=== PATIENT | female | born 1965 | race Caucasian/White ===

== ENCOUNTER → 2018-03-23 | Outpatient (CLI) | payer BC ==
[~2018-03-23] MED LIST: ALBU8.5H8 IH; ASPI-630 PO; FEXO180T81 PO; GADOBUTROL 10 MMOL/10 ML VIAL IV ONE; IBUP-1027 PO
--- NOTE | 2018-03-23 13:27 | KCIC ---
MRI pelvis with and without contrast dated 03/23/2018. No comparison available. Clinical data indication: Left lower quadrant pain. Fibroid uterus. TECHNIQUE: Routine multiplanar multisequence MR imaging performed with and without the administration of 10 cc Gadavist. FINDINGS: Uterus is enlarged, measuring 15.5 x 7.6 x 9.7 cm. There are multiple heterogeneous mass lesions throughout the myometrium, consistent with fibroids. Lesion at the right anterior aspect of the lower uterine segment is predominantly hypointense to isointense on T1 and T2-weighted imaging and measures up to 4.7 cm. More heterogeneous lesion at the left aspect of the lower uterine body measures up to 5.6 cm in size and contains some internal cystic components. Heterogeneous lesion at the posterior uterine body near the fundus is partially exophytic and measures 4.6 cm maximum dimension. Smaller nodules located at the fundus and anterior uterine body measure up to 2.8 cm maximum dimension. There are several additional cystic foci throughout. The endometrium is thickened and heterogeneous with prominent enhancement measuring up to 2.7 cm in width. There is a small nodular focus within the endometrium at the lower uterine segment which may be a submucosal fibroid or a pedunculated polyp, measuring about 7 mm maximum dimension. Multiple nabothian cysts at the endocervix. Left ovary measures 5.1 x 5.2 x 6.6 cm. There are multiple cysts at the left ovary, some of which are complex. There is a central solid component measuring up to 2.2 cm. A simple cyst at the upper margin of the left ovary measures up to 4.3 cm in size. The right ovary is not clearly identified. There is a cluster small cyst along the anterior right margin of the uterus that could represent a cyst filled ovary, measuring approximately 4.2 x 1.6 x 2.0 cm. No definite solid component or abnormal enhancement. There is no significant free fluid. No pelvic adenopathy. Urinary bladder is collapsed and not well evaluated. No acute bony abnormality. IMPRESSION: 1. Enlarged myomatous uterus as described above. 2. Thickened enhancing endometrial complex of uncertain etiology. This could be related to menstrual cycle or endometrial hyperplasia. If the patient is postmenopausal, malignancy cannot be excluded. 3. There is an additional nonenhancing nodular focus within the canal at the lower uterine segment which could represent a small submucosal fibroid or polyp. 4. Complex cystic mass on the left with possible 2.2 cm central solid nodular component. Although this could represent hemorrhagic cyst or other complex benign cyst, underlying ovarian malignancy cannot be excluded. Follow-up imaging is recommended to ensure stability. Electronically signed by: Dorian Tyler MD (03/23/2018 1:24 PM) [facility]-[id number]
== END | disposition home or self-care (01) ==
LOC: KCIC MRI 11:36
PROVIDERS: ATTEND Obstetrics & Gynecology
DX: N85.2 Hypertrophy of uterus (principal)
CPT/HCPCS: 72197; A9585

== ENCOUNTER → 2018-05-11 | Outpatient (CLI) | payer BC ==
[~2018-05-11] MED LIST changes: -GADOBUTROL 10 MMOL/10 ML VIAL IV ONE; +PARO20TA99 PO
[2018-05-11 15:07] LABS: BASO # 0.1 x10^3/uL (0.0-0.2); BASO % 1 % (0-3); EOS # 0.3 x10^3/uL (0.0-0.7); EOS % 3 % (0-3); HEMATOCRIT 37.9 % (36.0-47.0); HEMOGLOBIN 12.9 g/dL (12.0-15.5); LYMPH # 1.7 x10^3/uL (1.0-4.8); LYMPH % 19 % (24-48); MEAN CORPUSCULAR HEMOGLOBIN 29 pg (25-35); MEAN CORPUSCULAR HGB CONC 34 g/dL (31-37); MEAN CORPUSCULAR VOLUME 85 fL (79-100); MONO # 0.6 x10^3/uL (0.0-1.1); MONO % 6 % (0-9); NEUT # 6.4 x10^3uL (1.8-7.7); NEUT % 71 % (31-73); PLATELET COUNT 274 x10^3/uL (140-400); RED BLOOD COUNT 4.49 x10^6/uL (3.50-5.40); RED CELL DISTRIBUTION WIDTH 15.5 % (11.5-14.5)
[2018-05-11 15:09] LABS: BILIRUBIN,URINE NEGATIVE (NEG); CLARITY,URINE CLEAR; COLOR,URINE YELLOW; NITRITE,URINE NEGATIVE (NEG); PH,URINE 5.5; PROTEIN,URINE NEGATIVE (NEG-TRACE); UROBILINOGEN,URINE 0.2 mg/dL (0.2 mg/dL)
[2018-05-11 15:14] LABS: SQUAMOUS EPITHELIAL CELL,UR FEW /LPF
[2018-05-11 15:17] LABS: RBC,URINE >40 /HPF (0-2)
[2018-05-11 15:18] LABS: BACTERIA,URINE 0 /HPF (0-FEW); WBC,URINE OCC /HPF (0-4)
--- NOTE | 2018-05-11 15:19 | EKG ---
[facility] [address] [place] [address] Test Date: 2018-05-11 Test Time: 14:26:08 Pat Name: VESNA CALLE Department: Room: Gender: F Drill Sergeant: RASHI : 1965 Requested By: STEVE JACOB Order Number: [id number] Reading MD: Sohan Patel MD Measurements Intervals [place] Rate: 75 P: 53 MS: 166 QRS: 15 QRSD: 92 T: 70 QT: 384 QTc: 431 Interpretive Statements SINUS RHYTHM Electronically Signed On 05-13-2018 13:43:31 CDT by Sohan Patel MD
[2018-05-11 15:23] LABS: ALBUMIN 3.3 g/dL (3.4-5.0); ALBUMIN/GLOBULIN RATIO 0.7 (1.0-1.7); CALCIUM 8.5 mg/dL (8.5-10.1); CREATININE 0.7 mg/dL (0.6-1.0); GFR 87.9; POTASSIUM 3.5 mmol/L (3.5-5.1); TOTAL BILIRUBIN 0.5 mg/dL (0.2-1.0)
--- NOTE | 2018-05-11 15:49 | RAD ---
EXAM: Chest, 2 views. HISTORY: Preoperative evaluation. Pain. COMPARISON: None. FINDINGS: 2 views of the chest are obtained. There is no infiltrate, pleural effusion or pneumothorax. The heart is normal in size. IMPRESSION: No acute pulmonary finding. Electronically signed by: Janet Leslie MD (05/11/2018 3:46 PM) [facility]-H2
== END | disposition home or self-care (01) ==
LOC: SURGPAT 14:22
PROVIDERS: ATTEND Obstetrics & Gynecology
DX: Z01.818 Encounter for other preprocedural examination (principal); N85.2 Hypertrophy of uterus; E66.01 Morbid (severe) obesity due to excess calories
CPT/HCPCS: 36415; 71046; 80053; 81001; 85025; 93005

== ENCOUNTER 2018-05-24 06:00 | Inpatient (IN) | payer BC ==
[~2018-05-24] VITALS: Ht 160 cm; Wt 106.6 kg
[~2018-05-24 06:00] MED LIST changes: +BUPIVAC MPF-EPI 0.5%-1:200000 30 ML VIAL. ONE; +VASOPRESSIN 20 UNIT/ML VIAL. ONE
[2018-05-24] MEDS: IV RINGERS,LACTATED 1000ML 1,000 ML IV SCH ×3 (06:42→12:05)
[2018-05-24 06:51] LABS: U PREG PATIENT NEGATIVE (NEG)
[2018-05-24] MEDS ORDERED: HYDROmorphone 2 MG/ML VIAL IV PRN (07:00)
[2018-05-24] MEDS ORDERED: ONDANSETRON PF 4 MG/2 ML VIAL. IV PRN ×2 (07:00→10:45)
[2018-05-24] MEDS ORDERED: LIDOCAINE 1% PF 2 ML VIAL. ID PRN (07:00)
[2018-05-24] MEDS ORDERED: fentaNYL PF VIAL 100 MCG/2 ML VIAL IV PRN (07:00)
[2018-05-24] MEDS ORDERED: PROCHLORPERAZINE 10 MG/2 ML VIAL. IV PRN (07:00)
[2018-05-24] MEDS ORDERED: MORPHINE SULFATE 2 MG/ML VIAL. IV PRN ×2 (07:00→10:45)
[2018-05-24] MEDS ORDERED: LIDOCAINE 2% PF Vial for OR 5 ML VIAL. ONE (07:20)
[2018-05-24] MEDS ORDERED: MIDAZOLAM HCL/PF 2 MG/2 ML VIAL. ONE (07:20)
[2018-05-24] MEDS ORDERED: DEXAMETHASONE SOD PHOS 20 MG/5 ML VIAL. ONE (07:20)
[2018-05-24] MEDS ORDERED: PROPOFOL 50 ML IV ONE ×2 (07:20→08:31)
[2018-05-24] MEDS ORDERED: PROPOFOL 20 ML IV ONE ×2 (07:20→08:31)
[2018-05-24] MEDS ORDERED: fentaNYL PF VIAL 100 MCG/2 ML VIAL ONE (07:20)
[2018-05-24] MEDS ORDERED: ROCURONIUM 50 MG/5 ML VIAL. ONE ×2 (07:20→08:43)
[2018-05-24] MEDS ORDERED: ONDANSETRON PF 4 MG/2 ML VIAL. ONE ×2 (07:20→08:42)
[2018-05-24] MEDS ORDERED: REMIFENTANIL 2 MG VIAL. IV ONE (07:25)
[2018-05-24] MEDS ORDERED: PROPOFOL 200 ML IV ONE (07:31)
[2018-05-24] MEDS ORDERED: GLYCOPYRROLATE 1 MG/5 ML VIAL. ONE (07:55)
[2018-05-24] MEDS ORDERED: KETOROLAC 30 MG/ML INJ FOR OR. INJ ONE (08:42)
[2018-05-24] MEDS ORDERED: SCOPOLAMINE 1.5MG PATCH. TD SCH (09:00)
[2018-05-24] MEDS ORDERED: ALBUMIN HUMAN 5% 500 ML IV ONE (09:06)
[2018-05-24] MEDS ORDERED: NEOSTIGMINE METHYLSULFATE 5 MG/5 ML SYRINGE. ONE (09:19)
[2018-05-24] MEDS ORDERED: ZOLPIDEM 5 MG TABLET. PO PRN (10:45)
[2018-05-24] MEDS ORDERED: LACTULOSE 20 GM/30 ML SOLUTION. PO PRN (10:45)
[2018-05-24] MEDS ORDERED: CALCIUM CARBONATE 500 MG TAB.CHEW PO PRN (10:45)
[2018-05-24] MEDS ORDERED: 0.9 % SODIUM CHLORIDE 10 ML DISP.SYRIN. IV PRN (10:45)
[2018-05-24] MEDS ORDERED: NALOXONE 0.4 MG/ML VIAL. IV PRN (10:45)
[2018-05-24] MEDS ORDERED: MAG HYDROX/ALUMINUM HYD/SIMETH 30 ML ORAL.SUSP PO PRN (10:45)
[2018-05-24] MEDS ORDERED: SIMETHICONE 80 MG TAB.CHEW PO PRN (10:45)
[2018-05-24] MEDS ORDERED: diphenhydrAMINE 50 MG/ML VIAL IV PRN (10:45)
[2018-05-24] MEDS ORDERED: diphenhydrAMINE HCL 25 MG CAPSULE PO PRN (10:45)
[2018-05-24] MEDS ORDERED: MAGNESIUM HYDROXIDE 2,400 MG/30 ML ORAL.SUSP. PO PRN (10:45)
--- NOTE | 2018-05-24 11:00 | PDOC ---
BRIEF OPERATIVE NOTE Date: May 24, 2018 Pre-Op Diagnosis enlarged fibroid uterus, left ovarian mass, elevated Ca-125 Post-Op Diagnosis same Procedure Performed CRISTOFER/LSO (prior RSO) with pelvic washings for cytology Surgeon Dr. Roxy Thomas We[employer]her And Mixer Debra Adorno certified physician's assistant Anesthesiologist Dr. Dupont Anesthesia Type: General Blood Loss 1100cc IV Fluid 1300cc LR and 500cc albumin Urine Output 200cc clear whole case until last 15min and got 30cc blood tinged urine at end via peraza Specimens Obtained cervix, uterus, fibroids, Left tube and ovary Findings enlarged fibroid uterus, no significant pelvic adhesive disease, left ovarian cystic mass (fresh pathology came back benign per Dr. Mathew) Complications none Operative Note [id number] ROXY THOMAS MD May 24, 2018 11:00
[2018-05-24] MEDS: fentaNYL PF VIAL 100 MCG/2 ML VIAL IV PRN ×2 (11:21→12:06)
[2018-05-24 11:39] LABS: HEMATOCRIT 25.6 % (36.0-47.0); HEMOGLOBIN 8.8 g/dL (12.0-15.5); RED BLOOD COUNT 3.02 x10^6/uL (3.50-5.40); RED CELL DISTRIBUTION WIDTH 15.2 % (11.5-14.5); WHITE BLOOD COUNT 15.9 x10^3/uL (4.0-11.0)
--- NOTE | 2018-05-24 12:28 | OP ---
DATE OF SURGERY: 05/24/2018 PREOPERATIVE DIAGNOSES: Enlarged fibroid uterus, left ovarian mass with elevated CA-125. PROCEDURE: Total abdominal hysterectomy, left salpingo-oophorectomy and pelvic washings for cytology with a prior RSO. SURGEON: Steve Jacob MD. SALES REPRESENTATIVE [employer]IR[employer]PAREL: first lico Kwon. ANESTHESIOLOGIST: Wei Dupont MD. ANESTHESIA: General endotracheal. ESTIMATED BLOOD LOSS: 1100 mL. URINE OUTPUT: 200 mL, clear via the whole case until the last 15-20 minutes where she got 30 mL of blood-tinged urine via the Alfredo. INTRAVENOUS FLUIDS: 1300 mL of LR and then 500 mL of albumin. SPECIMEN REMOVED: Cervix, uterus fibroid, tumors left tube and ovary. FINDINGS: Enlarged fibroid uterus. No significant pelvic adhesive disease, left ovarian cystic mass that was sent off for fresh pathology, but Dr. Hinton came back and said appeared to be a benign process. COMPLICATIONS: None. DESCRIPTION OF PROCEDURE: This patient was taken to the operating room where general anesthesia was placed. The patient was placed in a dorsal supine position. A Alfredo catheter had been inserted under sterile technique. The patient's abdomen was prepped and draped in the normal sterile fashion. After a timeout was performed, she had been given her IV antibiotics and the time everyone approved the timeout, a transverse Pfannenstiel skin incision was made with the scalpel. Bovie cautery was used in the subcuticular layer to maintain hemostasis. The fascia was scored in the midline and extended sharply and bluntly bilaterally with the Bovie cautery. Steve clamps x 2 were placed on superior fascial edge. The fascia was dissected from the rectus muscles beneath sharply and bluntly. This was done inferiorly as well. The rectus muscles were digitally in the midline and the peritoneum was digitally and bluntly entered and stretched. The enlarged uterus and cystic left ovary could easily be felt. She was placed in a slight Trendelenburg, 3 moist laps were used to pack away the bowel and an O'Samuel-O'Freed retractor was placed in the abdomen with a large shallow upper blade and a bladder blade below. Pean's x 2 were placed on the cornua of the uterus to elevate it. It was very difficult as this was a broad uterus and barely came through the thing. The right side had previously been taken, but I did get the round ligament on the right side. There was no tube and ovary on the right, but the #0 Vicryl was used to place 2 stitches in the right round ligament. The Bovie cautery was used to cauterize between these and go down towards the bladder flap anteriorly and then, this was done exactly the same on the left getting the round ligament with 0 Vicryl x 2, but using the Bovie cautery to go through this and go down towards the bladder flap anteriorly. At this point, there was a large fibroid anteriorly that was scored with the cautery. A towel clip was placed over it and it was taken off, so I could see anteriorly and further take down that bladder flap anteriorly. I felt low and felt the ureter coursing low on the left side. Again, the right side, I did not even do anything on the right side as it was previously taken. So I did not even feel for the ureter on this side or do anything on the right side as it was completely gone, but it felt to be low and the cystic mass with high right next to the uterus, so a window through this area after the round ligament was obtained. My finger popped through. Curved Frantz clamps x 2 were placed behind the cystic mass, the curved Heaneys x 2 and it was cut off. It completely came off and it was passed off for fresh pathology. An 0 Vicryl was used to tie these. The first one was just at the tip and around and then the second one was like a Urich tree before and after going through the middle wrapping it around and making sure the blood supply was adequately got. Once this was done, the remainder of the utero-ovarian pedicle was doubly clamped freeing everything up with curved Heaneys, cut and this freed up the left side and then, curved Heaneys were placed on the uterine vessels on this side x 2. A straight Allis was placed for backbleeding on the other side of it and it was cut with Guy scissors. An 0 Vicryl x 2 were placed on the uterine vascular pedicles. This was done exactly the same on the right side, double clamping with curved Frantz's, cutting with Guy scissors, putting a straight Allis on for backbleeding, cutting and then suture ligating x 2 with 0 Vicryl. Then staying inside that pedicle, straight Heaneys were used on both sides going down through the cardinal and broad ligaments. There were more fibroids that were taken out and at one point, now that we were down to the cervix and I could see cervix, I did take the cautery and amputate the uterus and place our long Steve's on the cervical stub. Once this was done, I was able to take a sponge stick and make sure the bladder was down anteriorly and it was and even at this point, the urine was clear, everything looked good, the bladder was down. So 2 more bites with the straights and then a curved got us in vaginally and the Mk's were used to amputate the remaining cervix. The long Steve's were placed on the anterior and posterior vaginal cuff and a series of interrupted 0 Vicryls were used to close the cuff. I started at the corners on both coming in and taking it through the pedicles where the uterosacrals were on both sides tagging the corners and then placing I believe 4 interrupted 0 Vicryl sutures on the cuff as well. Once this was done, copious irrigation revealed hemostasis. The round and left pedicles were dry. Nathan was placed over the vaginal cuff and the tags were clipped. Nothing weld up, everything stayed dry. All 3 moist laps were removed from the abdomen where the packing had been done. All sponge, lap and needle counts were correct x 2 by OR personnel. The rectus muscles were dry, so at this point, I did look again and the cuff remained dry and the Nathan remained white and powdery. So, the fascia was closed with 0 Vicryl from left to past midline and then right embedded and tied together. Copious irrigation in the subcuticular layer revealed hemostasis as well. A 3-0 Vicryl was used to close off the Ilan's subcuticular layer and 3-0 Monocryl was used to close the skin. Mastisol and Steri-Strips were placed over the skin as well. The patient tolerated the procedure well and is currently being awakened from anesthesia. STEVE JACOB MD DR: CORINA/taylor JOB#: [id number] / [id number]
[2018-05-24 13:10] VITALS: BP 97/59
[2018-05-24 13:30] VITALS: BP 97/55
[2018-05-24 13:49] VITALS: BP 91/55
[2018-05-24] MEDS ORDERED: OPIUM/BELLADONNA 30/16.2MG SUPP.RECT. PR PRN (14:15)
[2018-05-24 14:30] VITALS: BP 96/51
[2018-05-24 16:29] VITALS: BP 99/52
[2018-05-24 23:09] VITALS: BP 126/67
[2018-05-25] MEDS: HYDROcodone/APAP 5/325MG 1 TAB TABLET PO PRN ×2 (00:17→05:26)
[2018-05-25 06:00] LABS: CALCIUM 7.9 mg/dL (8.5-10.1); CREATININE 0.7 mg/dL (0.6-1.0); GFR 87.9; POTASSIUM 4.4 mmol/L (3.5-5.1)
[2018-05-25 06:42] VITALS: BP 131/69
--- NOTE | 2018-05-25 07:59 | PDOC ---
SURGICAL PROGRESS NOTE Subjective Doing well without complaints. Tolerating liquids, No n/v hungry this am catheter out but has not voided yet minimal pain Vital Signs Vital Signs Date Time Temp Pulse Resp B/P (MAP) Pulse Ox O2 Delivery O2 Flow Rate FiO2 05/25/18 06:42 97.7 72 131/69 (89) 95 97.7 05/24/18 23:09 18 Nasal Cannula 1.0 I&O Intake and Output 05/25/18 07:00 Intake Total 3850 ml Output Total 4700 ml Balance -850 ml Intake Oral 650 ml IV Total 1950 ml Other 1250 ml Output Urine Total 3600 ml Estimated Blood Loss 1100 ml PATIENT HAS A BRADY: No General: Alert, Oriented X3, Cooperative, No acute distress HEENT: Atraumatic Heart: Regular rate Abdomen: Soft, No tenderness, Other (bandage c/d/i) Extremities: No clubbing, No cyanosis, No edema Skin: No rashes, No breakdown, Other (SCDs in place) Neuro: Normal speech Psych/Mental Status: Mental status NL, Mood NL Labs Laboratory Tests Test 05/24/18 06:12 05/24/18 11:25 05/25/18 05:10 Urine Test Negative (NEG) White Blood Count 15.9 x10^3/uL (4.0-11.0) Red Blood Count 3.02 x10^6/uL (3.50-5.40) Hemoglobin 8.8 g/dL (12.0-15.5) Hematocrit 25.6 % (36.0-47.0) 23.3 % (36.0-47.0) Mean Corpuscular Volume 85 fL (79-100) Mean Corpuscular Hemoglobin 29 pg (25-35) Mean Corpuscular Hemoglobin Concent 34 g/dL (31-37) Red Cell Distribution Width 15.2 % (11.5-14.5) Platelet Count 321 x10^3/uL (140-400) Sodium Level 143 mmol/L (136-145) Potassium Level 4.4 mmol/L (3.5-5.1) Chloride Level 109 mmol/L (98-107) Carbon Dioxide Level 28 mmol/L (21-32) Anion Gap 6 (6-14) Blood Urea Nitrogen 8 mg/dL (7-20) Creatinine 0.7 mg/dL (0.6-1.0) Estimated GFR (Cockcroft-Gault) 87.9 Glucose Level 124 mg/dL (70-99) Calcium Level 7.9 mg/dL (8.5-10.1) Laboratory Tests Test 05/24/18 11:25 05/25/18 05:10 White Blood Count 15.9 x10^3/uL (4.0-11.0) Red Blood Count 3.02 x10^6/uL (3.50-5.40) Hemoglobin 8.8 g/dL (12.0-15.5) Hematocrit 25.6 % (36.0-47.0) 23.3 % (36.0-47.0) Mean Corpuscular Volume 85 fL (79-100) Mean Corpuscular Hemoglobin 29 pg (25-35) Mean Corpuscular Hemoglobin Concent 34 g/dL (31-37) Red Cell Distribution Width 15.2 % (11.5-14.5) Platelet Count 321 x10^3/uL (140-400) Sodium Level 143 mmol/L (136-145) Potassium Level 4.4 mmol/L (3.5-5.1) Chloride Level 109 mmol/L (98-107) Carbon Dioxide Level 28 mmol/L (21-32) Anion Gap 6 (6-14) Blood Urea Nitrogen 8 mg/dL (7-20) Creatinine 0.7 mg/dL (0.6-1.0) Estimated GFR (Cockcroft-Gault) 87.9 Glucose Level 124 mg/dL (70-99) Calcium Level 7.9 mg/dL (8.5-10.1) Heme/Onc: Anemia NOS Assessment/Plan POD #1 s/p CRISTOFER/LSO/pelvic washings Routine Care iron bid ambulate, advance diet as tolerated likely home tomorrow STEVE JACOB MD May 25, 2018 07:59
[2018-05-25] MEDS ORDERED: ROCURONIUM 50 MG/5 ML VIAL. ONE (09:21)
[2018-05-25] MEDS ORDERED: fentaNYL PF VIAL 100 MCG/2 ML VIAL ONE (09:21)
[2018-05-25] MEDS ORDERED: PROPOFOL 0 ML IV ONE (09:21)
[2018-05-25] MEDS ORDERED: DEXAMETHASONE SOD PHOS 20 MG/5 ML VIAL. ONE (09:22)
[2018-05-25] MEDS ORDERED: ONDANSETRON PF 4 MG/2 ML VIAL. ONE (09:22)
[2018-05-25] MEDS: oxyCODONE/APAP 5/325 1 TAB TABLET PO PRN ×2 (09:53→16:29)
[2018-05-25 11:00] VITALS: BP 128/70
[2018-05-25] MEDS: FERROUS SULFATE 325 MG TABLET. PO SCH ×2 (12:28→16:28)
--- NOTE | 2018-05-25 16:08 | PATHOLOGY ---
Note [facility] Accession Number: [id number] TESTS RESULT FLAG UNITS REF RANGE LAB Clinician Provided Cytology Information No. of containers..01 Other (Miscellaneous) Source: PELVIC WASH DIAGNOSIS: 02 PELVIC WASH NEGATIVE FOR MALIGNANT CELLS. SCANT CELLULARITY. THIS INTERPRETATION INCLUDES EVALUATION OF A CELL BLOCK. Signed out by: Camacho Wesley MD, Pathologist NPI- [id number] Performed by: Sinan Celis, Tin Container Straightener ([facility]) Gross description: 01 18ML, RED, SOLID /LCS FLAG LEGEND: L-Low Normal,H-High Normal,LL-Alert Low,HH-Alert High <-Panic Low,>-Panic High,A-Abnormal,AA-Critical Abnormal Performed at: [address] [place] [address] Ney Eden MD, [address] [facility] [address] [place] [address] Boris Hinton MD, Specimen Comment: A courtesy copy of this report has been sent to Specimen Comment: [phone]. Specimen Comment: Report sent to Specimen Comment: A duplicate report has been generated due to demographic updates. Performed at: [address] [place] [address] [address], [place], [place] [id number] MD Ney Eden MD Phone: [phone]
[2018-05-25 16:18] VITALS: BP 119/59
[2018-05-25] MEDS ORDERED: IBUPROFEN 400 MG TABLET. PO PRN (16:30)
[2018-05-25] MEDS ORDERED: ONDANSETRON ODT 4 MG TAB.RAPDIS. PO PRN (18:15)
[2018-05-25 20:16] VITALS: BP 125/67
[2018-05-26] MEDS: oxyCODONE/APAP 5/325 1 TAB TABLET PO PRN (00:07)
[2018-05-26 03:50] VITALS: BP 110/61
--- NOTE | 2018-05-26 08:23 | PDOC ---
SURGICAL PROGRESS NOTE Subjective Doing well without complaints. Voiding without catheter. Tolerating regular diet. Wants to go home No vaginal bleeding Vital Signs Vital Signs Date Time Temp Pulse Resp B/P (MAP) Pulse Ox O2 Delivery O2 Flow Rate FiO2 05/26/18 03:50 98.4 75 15 110/61 (77) 97 Room Air 98.4 I&O Intake and Output 05/26/18 07:00 Intake Total 340 ml Output Total 100 ml Balance 240 ml Intake Oral 340 ml Output Urine Total 100 ml # Voids 2 PATIENT HAS A BRADY: No General: Alert, Oriented X3, Cooperative, No acute distress HEENT: Atraumatic Heart: Regular rate Abdomen: Soft, No tenderness, No masses, Other (incision c/d/i with steri strips in place) Extremities: No clubbing, No cyanosis, No edema, No tenderness/swelling Neuro: Normal speech Psych/Mental Status: Mental status NL, Mood NL Labs Laboratory Tests Test 05/24/18 11:25 05/25/18 05:10 White Blood Count 15.9 x10^3/uL (4.0-11.0) Red Blood Count 3.02 x10^6/uL (3.50-5.40) Hemoglobin 8.8 g/dL (12.0-15.5) Hematocrit 25.6 % (36.0-47.0) 23.3 % (36.0-47.0) Mean Corpuscular Volume 85 fL (79-100) Mean Corpuscular Hemoglobin 29 pg (25-35) Mean Corpuscular Hemoglobin Concent 34 g/dL (31-37) Red Cell Distribution Width 15.2 % (11.5-14.5) Platelet Count 321 x10^3/uL (140-400) Sodium Level 143 mmol/L (136-145) Potassium Level 4.4 mmol/L (3.5-5.1) Chloride Level 109 mmol/L (98-107) Carbon Dioxide Level 28 mmol/L (21-32) Anion Gap 6 (6-14) Blood Urea Nitrogen 8 mg/dL (7-20) Creatinine 0.7 mg/dL (0.6-1.0) Estimated GFR (Cockcroft-Gault) 87.9 Glucose Level 124 mg/dL (70-99) Calcium Level 7.9 mg/dL (8.5-10.1) I have reviewed the following labs, vitals, nursing Pulmonary: No pertinent hx GI: No pertinent hx Heme/Onc: Anemia NOS Assessment/Plan POD#2 s/p CRISTOFER/LSO/pelvic washings Routine pO care d/c to home NPV x 6 weeks light/limited activity x 2 weeks NO [address] on pain meds keep scheduled follow up with me in 7-10d call or return sooner for any other questions or concerns not limited to but including pain unrelieved with pain meds, increased or unexplained vaginal bleeding or T>100.4 already has pain meds at home STEVE JACOB MD May 26, 2018 08:23
--- NOTE | 2018-05-26 08:27 | PDOC3 ---
Discharge Summary Visit Information Date of Admission: May 24, 2018 Date of Discharge: May 26, 2018 Final Diagnosis enlarged fibroid uterus, left ovarian mass Brief Hospital Course Allergies Allergies Coded Allergies Type Severity Reaction Last Updated Verified Sulfa (Sulfonamide Antibiotics) Allergy Intermediate 05/24/18 Yes Vital Signs Vital Signs Date Time Temp Pulse Resp B/P (MAP) Pulse Ox O2 Delivery O2 Flow Rate FiO2 05/26/18 03:50 98.4 75 15 110/61 (77) 97 Room Air 98.4 Lab Results Laboratory Tests Test 05/24/18 11:25 05/25/18 05:10 White Blood Count 15.9 x10^3/uL (4.0-11.0) Red Blood Count 3.02 x10^6/uL (3.50-5.40) Hemoglobin 8.8 g/dL (12.0-15.5) Hematocrit 25.6 % (36.0-47.0) 23.3 % (36.0-47.0) Mean Corpuscular Volume 85 fL (79-100) Mean Corpuscular Hemoglobin 29 pg (25-35) Mean Corpuscular Hemoglobin Concent 34 g/dL (31-37) Red Cell Distribution Width 15.2 % (11.5-14.5) Platelet Count 321 x10^3/uL (140-400) Sodium Level 143 mmol/L (136-145) Potassium Level 4.4 mmol/L (3.5-5.1) Chloride Level 109 mmol/L (98-107) Carbon Dioxide Level 28 mmol/L (21-32) Anion Gap 6 (6-14) Blood Urea Nitrogen 8 mg/dL (7-20) Creatinine 0.7 mg/dL (0.6-1.0) Estimated GFR (Cockcroft-Gault) 87.9 Glucose Level 124 mg/dL (70-99) Calcium Level 7.9 mg/dL (8.5-10.1) Brief Hospital Course Ms. Araya is a 52 old female who presented with enlarged fibroid uterus with menorrhagia, during the work up an enlarged left ovary with mass was discovered also with elevated ca-125. She underwent a CRISTOFER/LSO/pelvic washings (prior RSO) on 05-24-18. Initial fresh of the left ovary appeared to be a benign process. She has had an unremarkable posteropative course. She is doing well tolerating regular diet, voiding, ambulating and desiring to go home. Pain controlled with Lortabs here fine. Discharge Information Condition at Discharge: Improved Follow Up: Weeks Disposition/Orders: D/C to Home Scheduled Fexofenadine Hcl (Lianne Allergy) 180 Mg Tablet, 180 MG PO DAILY, (Reported) Entered as Reported by: Blanca Bolanos on 03/23/18 1243 Last Taken: Unknown Dose on 05/22/18 Last Action: Last Taken Edited on 05/24/18641 by HUY GUSTAFSON Paroxetine Hcl (Paxil) 20 Mg Tablet, 1 TAB PO HS, #30 Ref 5 (Reported) Entered as Reported by: KEV MARTI on 05/11/18 1445 Last Taken: Unknown Dose on 05/22/18 Last Action: Last Taken Edited on 05/24/18641 by HUY GUSTAFSON Scheduled PRN Ibuprofen (Ibuprofen) 400 Mg Tablet, 400 MG PO PRN Q6HRS PRN for INFLAMMATION, ( Reported) Entered as Reported by: Blanca Bolanos on 03/23/18 1243 Last Taken: Unknown Dose on 05/16/18 Last Action: Last Taken Edited on 05/24/1842 by HUY GUSTAFSON Patient Instructions Patient Instructions POD#2 s/p CRISTOFER/LSO/pelvic washings Routine pO care d/c to home NPV x 6 weeks light/limited activity x 2 weeks NO [address] on pain meds keep scheduled follow up with me in 7-10d call or return sooner for any other questions or concerns not limited to but including pain unrelieved with pain meds, increased or unexplained vaginal bleeding or T>100.4 already has pain meds at home BID iron with meals STEVE JACOB MD May 26, 2018 08:27
[2018-05-26] MEDS: HYDROcodone/APAP 5/325MG 1 TAB TABLET PO PRN ×2 (08:51→12:32)
[2018-05-26] MEDS: FERROUS SULFATE 325 MG TABLET. PO SCH (12:32)
[2018-05-26 12:36] VITALS: BP 118/70
--- NOTE | 2018-05-28 18:06 | PATHOLOGY ---
[facility] Accession Number: [id number] . 01 Material submitted: . PART A: LEFT FALLOPIAN TUBE AND OVARY FRESH - FS PART B: UTERUS, CERVIX AND FIBROIDS . 01 Clinical history: . Vaginal bleeding . 02 Diagnosis: A. Ovary and fallopian tube, left, salpingo-oophorectomy: - Ovary with multiloculated serous cystadenofibroma (8 x 5.5 x 3.0 cm). - Right fallopian tube with simple paratubal cyst. - Separate portion of benign smooth muscle consistent with portion of leiomyoma, 1.5 cm. . B. "Uterus, cervix, and fibroids", hysterectomy: - Cervix with mild chronic inflammation, squamous metaplasia, nabothian cysts, and endocervical polyp (1.7 cm) with moderate chronic inflammation and focal squamous metaplasia. - Proliferative phase endometrium. - Myometrium with extensive adenomyosis and multiple leiomyomata, up to 5.8 cm. - Serosal surface with focal endosalpingiosis. . (SKM:vjm;05/26/2018) AGA/05/28/2018 . 02 Electronically signed: . Camacho Wesley MD, Pathologist NPI- [id number] . 01 Gross description: . A. The specimen is received fresh for intraoperative consultation and is designated "left fallopian tube and ovary". This consists of an enlarged nodular multicystic ovary with attached fimbriated segment of fallopian tube. The fallopian tube measures approximately 4.5 cm in length. The serosa is pinkish red and smooth. The attached ovary has a nodular multicystic appearance and measures up to 8.0 x 5.5 x 3.0 cm in greatest dimension. The capsular surface is pink to pale see and generally appears smooth. There are focal reddened friable granular areas noted on the external surface. Sectioning reveals multiple cysts ranging from 0.2 cm up to 2.5 cm in greatest dimension. The cysts contain a yellow, watery serous fluid. The cysts do not reveal any obvious papillary projections. The central portion of the ovary is yellow-almendarez, solid and rubbery. Also received within the specimen container is a well-circumscribed almendarez, rubbery nodule measuring 1.5 cm in greatest dimension. This has a almendarez-white whorled rubbery cut surface consistent with a leiomyoma. A medical office representative portion of the ovary is submitted for frozen section as FSA1. The tissue remaining for frozen section is submitted for permanent sections as A1. (JPM:sanju; 05/24/2018) . Additional medical office representative sections are submitted as follows: . A2 medical office representative sections of fallopian tube and separately submitted possible leiomyoma A3-A10 medical office representative sections of ovary. . B. The specimen is received in formalin, labeled "Irma Araya, uterus, cervix, fibroids". Received is a 312 g, 10.2 x 8.1 x 7.5 cm uterine corpus and separately submitted port 5 g cervical stump. The uterine serosa is light almendarez and disrupted in appearance with multiple cystic structures ranging in size from 0.3 to 0.6 cm filled with clear fluid. The uterine corpus cannot be oriented. The uterine corpus is opened laterally to reveal a triangular endometrial cavity measuring 7.0 cm in length by 4.4 cm in width. The endometrium is pink-almendarez, glistening to shaggy in appearance and measures 0.1 cm in thickness. Serial sectioning reveals a almendarez-pink, trabeculated myometrium measuring up to 3.5 cm in thickness displaying evidence of moderate adenomyosis, as well as several intramural fibroids ranging in size from 1.2 to 2.1 cm in maximum dimensions. . The cervical stump measures 5.8 x 3.6 x 3.5 cm in greatest dimensions. The 0.8 cm cervical os is surrounded by pale almendarez, smooth ectocervical mucosa. The cervical stump cannot be oriented and one half of the paracervical margin is inked black. The specimen is opened laterally to reveal a pale almendarez endocervical canal measuring 4.5 cm in length displaying a pale almnedarez papillary-appearing lesion measuring 1.7 x 1.3 x 0.5 cm, which is 1.0 cm from the cervical os and 2.0 cm from the superior aspect of the lower uterine segment (please see attached photos). The opposing paracervical aspect is inked blue. Sectioning through the lesion reveals no gross invasion into the underlying tissue. . Also received within the specimen container are three fibroids ranging in size from 4.5 x 3.3 x 3.2 to 5.8 x 4.7 x 3.5 cm in greatest dimensions and weighing 149 g. Sectioning reveals white-almendarez to pink-almendarez, whorled cut surfaces with a slight amount of possible necrosis present. The specimen is submitted representatively as follows: . B1 cervix B2 opposite cervix B3-B6 entire papillary-appearing lesion within endocervical canal, submitted from inferior to superior aspects B7 serosal cystic structures B8 endomyometrium B9 opposite endomyometrium with adenomyosis B10 intramural fibroids B11-B12 medical office representative sections of separately submitted fibroids with possible necrosis submitted in cassette B11. . See attached gross photographs for explanation of how lesion and endocervical canal was submitted. (CAA; 05/25/2018) . INTRAOPERATIVE CONSULTATION WITH FROZEN SECTION (Boris Hinton) . Left fallopian tube and ovary, excision: - Benign serous tumor with focal surface papillary serous adenofibroma. . The results were reported to Dr. Thomas in the operating room. . Additional sections are submitted following formal fixation. . Frozen section performed at [facility], [address] [place] [id number]. . (JPM:sanju; 05/24/2018) [facility] . 02 Pathologist provided ICD-10: D27.1, D25.9, N72, N88.8, N84.1, N80.0 . 02 CPT . 057199, [id number] Specimen Comment: A courtesy copy of this report has been sent to Specimen Comment: [phone]. Specimen Comment: Report sent to Specimen Comment: A duplicate report has been generated due to demographic updates. Performed at: 01 [facility] [address], [place] [id number] MD Ney Eden MD Phone: [phone] Performed at: [address] [id number] MD Boris Hinton MD Phone: [phone]
== END 2018-05-26 15:30 | disposition home or self-care (01) | DRG 743 ==
LOC: SURG 06:00 → 3 NORTH 12:13
PROVIDERS: ADMIT Obstetrics & Gynecology; ATTEND Obstetrics & Gynecology
PROC: 0UT10ZZ Resection of Left Ovary, Open Approach (ICD-10-PCS; 2018-05-24)
PROC: 0UT60ZZ Resection of Left Fallopian Tube, Open Approach (ICD-10-PCS; 2018-05-24)
PROC: 3E1M38X Irrigation of Peritoneal Cavity using Irrigating Substance, Percutaneous Approach, Diagnostic (ICD-10-PCS; 2018-05-24)
PROC: 0UT90ZZ Resection of Uterus, Open Approach (ICD-10-PCS; principal; 2018-05-24 07:30)
DX: D25.9 Leiomyoma of uterus, unspecified (principal); N83.202 Unspecified ovarian cyst, left side; R97.1 Elevated cancer antigen 125 [CA 125]; Z88.2 Allergy status to sulfonamides
CPT/HCPCS: 36415; 80048; 81025; 85014; 85027; 86850; 86900; 86901; 88112; 88305; 88307; A7015; J0690; J0780; J1100; J1885; J2001; J2250; J2270; J2405; J2704; J2710; J3010; J3490; J7120; P9045; Q0162; A4461

== ENCOUNTER → 2019-10-29 | Outpatient (CLI) | payer BC ==
[~2019-10-29] MED LIST changes: +ACET500T68 PO; +ALBU2.5V8 IH; -ALBU8.5H8 IH; +AMLO5TAB10 PO; -BUPIVAC MPF-EPI 0.5%-1:200000 30 ML VIAL. ONE; +CYCL5TAB PO; +IOHEXOL 180 MG/ML 10 ML VIAL. ONE; +LISI-130 PO; +MELO15TA6 PO; +TOPI100T8 PO; +TRAM50TA PO; -VASOPRESSIN 20 UNIT/ML VIAL. ONE; +methylPREDNISolone ACETATE 40 MG/ML VIAL. ONE; +methylPREDNISolone ACETATE 80 MG/ML VIAL. ONE
--- NOTE | 2019-10-29 11:54 | PAIN ---
DATE OF SERVICE: 10/29/2019 INITIAL CONSULTATION FOR PAIN CLINIC CHIEF COMPLAINT: Headache and neck pain. HISTORY OF PRESENT ILLNESS: This is a 53-year-old female who presents with history of pain, headaches, migraines, and cervicalgia for about 9 months. The patient reports no specific injury or accident that she is aware of. It is getting gradually worse over time. Pain in the base of neck and shoulders causing headaches and becoming more constant, throbbing, shooting into the bilateral shoulders, but only rarely into the upper extremities. The patient reports it is mainly causing pain in the neck and causing headaches to be worse. The patient has had migraines for some period of time. She was seen by her neurologist without any long-term success with medication management at this time. The patient reports the pain awakens her from sleep off and on, but not every night. The patient reports it does affect her bowel and bladder control, but no incontinence. Reports it does not affect her ability to walk. She has had physical therapy on her neck and shoulders, which was not significantly helpful, this was in the last year by her report. The patient describes the pain as throbbing and shooting across the base of the shoulders into the back of the neck and radiating upwards into the back of the head causing significant headaches and worsening of headache. The patient rates her disability rating from 0-10, 10 being the worst, is an 8 with family and home responsibilities, recreation, social activity; 9 with occupation and sexual behavior, 8 with self-care and 7 with life support activities. The patient did have some plain films dated 02/2019 showing degenerative changes throughout the cervical spine as noted. The patient reports she had an MRI scan ordered, she believes, but has not been performed yet and we could find no record of that as well. The patient reports no loss of motor function. No weakness to the upper extremities, she has not been dropping items. She reports the pain is worse with rotational motion of cervical spine, especially extension, but not with forward flexion and with time using her computer, answering the phone when she is working, there is exacerbation of the pain significantly with these movements. PAST MEDICAL HISTORY: Significant for hypertension, dizziness, headaches, arthritis. PREVIOUS SURGERY: Include hysterectomy, cholecystectomy and oophorectomy. CURRENT MEDICATIONS: Include Paxil, Lianne, topiramate, amlodipine, meloxicam, lisinopril, acetaminophen, cyclobenzaprine and tramadol. ALLERGIES: THE PATIENT IS ALLERGIC TO SULFA. FAMILY HISTORY: Significant for diabetes and hypertension. SOCIAL HISTORY: The patient reports she does not drink alcohol, does not smoke, does not use any illegal, illicit or recreational drugs. She is , lives with her spouse in [place], [place], and works for the [employer], using a phone with computer use and multiple rotational motions of her neck and spine throughout her working day. REVIEW OF SYSTEMS: The patient's review of systems is positive for those items mentioned in history of present illness. All systems reviewed and otherwise negative. It is complete, full and well documented on the patient's chart. PHYSICAL EXAMINATION: VITAL SIGNS: The patient's blood pressure is 190/88, pulse is 71, respirations 18, temperature is 97.3 degrees Fahrenheit, height is 5 feet 3 inches, weight is 193 pounds. GENERAL: The patient is awake, alert, oriented, appropriate, very pleasant demeanor. HEENT: Exam shows normocephalic, atraumatic. Extraocular movements are intact and symmetrical. Oral cavity shows mucous membranes moist and pink. Dentition is intact. NECK: Shows anterior throat supple without palpable lymphadenopathy noted. Swallow reflex symmetrical. CHEST: Shows normal on inspection. Breath sounds are clear bilaterally. HEART: Shows S1, S2 clear. No murmurs auscultated. ABDOMEN: Obese, soft, nontender, nondistended. No palpable organomegaly is noted. No rebound or guarding demonstrated. BACK: Shows spine grossly in the midline. Normal appearing cervical lordotic curvature, slight exaggeration of thoracic kyphosis, minor flattening of lumbar lordotic curvature. Cervical paraspinous muscle shows symmetrical on inspection, on palpation shows some mild tenderness to moderate tenderness in the middle and lower distribution of cervical paraspinous musculature. Superior aspect is only very minimally tender with palpation. Musculature is symmetrical on inspection, with palpation shows some moderate tenderness diffusely throughout the upper, middle and lower distribution of paraspinous muscles, again worse in the lower and middle distribution into the superior medial trapezius bilaterally, right essentially equal to left. No atrophy, hypertrophy, no trigger points. No radiation of pain. The patient has good rotational motion of cervical spine as well as lateral rotation with some moderate tenderness bilaterally, but only past 45 degrees but rotates without significant limitation. The patient has good extension and flexion with some minor pain reported at the base of the neck with extension only, but not with forward flexion. EXTREMITIES: The patient's upper extremities show deep tendon reflexes at 2+ in the biceps and triceps tendons. 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 Shoulder shrug is strong and intact without loss of strength on resistance as is abduction of the shoulder to 90 degrees without loss of strength on resistance as well. Peripheral pulses are 2+ radial. No peripheral edema is noted bilaterally. SKIN: Shows warm and dry, good turgor. No edema. No sores, rashes or bruising throughout. IMPRESSION: 1. This is a 53-year-old female with approximate 9-month history of pain in the base of the neck and shoulders causing headaches. 2. Plain films cervical spine as noted. 3. Hypertension. 4. Obesity. 5. Arthritis. PLAN: Options were discussed with the patient including conservative medical managements, physical therapies and interventional techniques. She elected to pursue interventional techniques. We discussed a cervical epidural steroid injection using description as well as anatomical models to describe the procedure. Risks were discussed including but not limited to bleeding, infection, possibility of epidural hematoma, subsequent neurological compromise, dural puncture, headaches, spinal cord and/or nerve damage, side effects of steroid medication including immunosuppression as well as poor results regarding pain control. The patient understands and wished to proceed. The patient will return to clinic in approximately 2 weeks for followup. She was counseled on return appointment, activity level and side effects to be aware of. DIAGNOSES: Cervical radiculopathy with cervical degenerative disk disease. PROCEDURE: Cervical epidural steroid injection, translaminar approach at the C6-C7 level using C-arm fluoroscopic guidance under sterile prep and drape using local anesthetic. MEDICATION INJECTED: A total of 120 mg Depo-Medrol plus 5 mL of preservative-free normal saline and 2 mL of contrast. CONDITION AT DISCHARGE: Stable. The patient tolerated procedure well, had no complications. SWAPNIL CLIFFORD MD DR: RENÉ/taylro JOB#: [id number] / [id number] MADY Goyal DO
== END ==
LOC: PNCL 09:28
PROVIDERS: ATTEND Anesthesiology
DX: M50.123 Cervical disc disorder at C6-C7 level with radiculopathy (principal); I10 Essential (primary) hypertension; Z87.39 Personal history of other diseases of the musculoskeletal system and connective tissue; Z90.710 Acquired absence of both cervix and uterus; Z90.49 Acquired absence of other specified parts of digestive tract; Z90.721 Acquired absence of ovaries, unilateral; Z88.1 Allergy status to other antibiotic agents
CPT/HCPCS: 62321; J1030; J1040; Q9965

== ENCOUNTER → 2019-11-12 | Outpatient (CLI) | payer BC ==
--- NOTE | 2019-11-12 09:32 | PAIN ---
DATE OF SERVICE: 11/12/2019 PROGRESS NOTE FOR PAIN CLINIC DIAGNOSES: Cervical radiculopathy with cervical degenerative disk disease. HISTORY OF PRESENT ILLNESS: The patient is a 53-year-old female who returns for followup status post cervical epidural steroid injection x 1. The patient reports about 60% improvement. The patient reports the pain is returning now, however, over the past few days in the base of neck and shoulders, also some posterior headaches. The patient reports the pain is a 10 on a scale of 10 at its worst over the past week, 8 on average, 5 at its least and is a 5 today. The patient reports it is throbbing pain, also sharp in the shoulders and arms, becoming more constant and severe, it can be unbearable at times with increased activity, reaching over her head with her arms or doing repetitive motions. The patient reports it is essentially equal right and left at this time into the shoulders and arms, but has been better with sleeping. She has not been awakening from sleep at night. Reports initially she was doing much better with doing activities at home around the house, traveling with greater ease and comfort, sleeping better, but now, the pain begins to return, again over the past few days with a throbbing quality in the base of neck and shoulders. The patient reports no new motor or sensory deficits, no new bowel or bladder incontinence or other complaints. PHYSICAL EXAMINATION: VITAL SIGNS: The patient's blood pressure 154/76, pulse 100, respirations 18, temperature 97.8 degrees Fahrenheit, height is 5 feet 3 inches, weight is 184 pounds. GENERAL: The patient is awake, alert, oriented, appropriate, very pleasant demeanor. HEENT: Exam shows normocephalic, atraumatic. Extraocular movements are intact and symmetrical. Oral cavity shows mucous membranes moist and pink. NECK: Shows anterior throat supple without palpable lymphadenopathy noted. Swallow reflex symmetrical. CHEST: Shows normal on inspection. Breath sounds are clear bilaterally. HEART: Shows S1, S2 clear. No murmurs auscultated. ABDOMEN: Soft, obese, nontender, nondistended. BACK: Shows spine grossly in the midline. Normal appearing thoracic kyphosis, cervical lordotic curvature and lumbar lordotic curvature. Cervical paraspinous muscle shows symmetrical on inspection, on palpation shows some moderate tenderness diffusely only in the middle and lower distribution of paraspinous muscles into the superior and lateral aspect of the trapezius musculature bilaterally, but without significant trigger points, without atrophy, hypertrophy, without radiation of pain. The patient has good rotational motion of cervical spine with some minor tenderness with right and left lateral rotation, but past 45 degrees closer to 90 degrees without significant difficulty, minor tenderness with forward flexion as well as extension, but only very minor again without radiation. EXTREMITIES: Upper extremities show deep tendon reflexes 2+ in the biceps, triceps tendons. Motor exam is strong with 5/5 grader marker strength, bicep and tricep flexion and equal. Peripheral pulses are 2+ radial. No peripheral edema is noted bilaterally. Options were discussed with the patient. The patient's old chart was reviewed as her current medication regimen updated. Current review of systems updated today as well. We will proceed with a second in series of cervical epidural steroid injection today with fluoroscopic guidance. Risks were again discussed including, but not limited to bleeding, infection, possibility of epidural hematoma, subsequent neurological compromise, dural puncture, headaches, spinal cord and/or nerve damage, side effects of steroid medication and poor results regarding pain control. The patient understands and wished to proceed. The patient will return to clinic in approximately 2 weeks for followup. She was counseled as to return appointment, activity level and side effects to be aware of. DIAGNOSES: Cervical radiculopathy with cervical degenerative disk disease. PROCEDURE: Cervical epidural steroid injection, translaminar approach at C6-C7 level using C-arm fluoroscopic guidance under sterile prep and drape using local anesthetic. MEDICATION INJECTED: Total of 120 mg Depo-Medrol plus 5 mL of preservative-free normal saline and 2 mL of contrast. CONDITION AT DISCHARGE: Stable. The patient tolerated the procedure well, had no complications. SWAPNIL CLIFFORD MD DR: RENÉ/taylor JOB#: [id number] / [id number]
== END ==
LOC: PNCL 08:31
PROVIDERS: ATTEND Anesthesiology
DX: M50.123 Cervical disc disorder at C6-C7 level with radiculopathy (principal)
CPT/HCPCS: 62321; J1030; J1040; Q9965

== ENCOUNTER → 2019-11-26 | Outpatient (CLI) | payer BC ==
--- NOTE | 2019-11-26 10:34 | PAIN ---
DATE OF SERVICE: 11/26/2019 PROGRESS NOTE FOR PAIN CLINIC DIAGNOSES: Cervical radiculopathy with cervical degenerative disk disease. HISTORY OF PRESENT ILLNESS: The patient is a 53-year-old female who returns for followup status post cervical epidural steroid injections x 2. The patient reports very good about 70% improvement overall, but still has some pain in the base of the neck on the left side greater than the right, but The patient reports doing much better, increased her activity with greater ease and comfort, sleeping better at night. She is using a supportive traction device at home as well as new pillow, which seems to be helping. The patient reports it is 7 on a scale of 10 at its worst over the past week, 4 on average and 4 at its least and is a 4 today. The patient reports it is aching, sharp and dull, alternating in the base of the neck, more on the left than the right, but present bilaterally. The patient reports no new changes, no new deficits. PHYSICAL EXAMINATION: VITAL SIGNS: The patient's blood pressure 148/75, pulse 91, respirations 18, temperature 98.5 degrees Fahrenheit, height is 5 feet 3 inches, and weight is 191 pounds. GENERAL: The patient is awake, alert, oriented, appropriate, very pleasant demeanor. HEENT: Shows normocephalic, atraumatic. Extraocular movements are intact and symmetrical. Oral cavity: Mucous membranes moist and pink. Dentition is intact. NECK: Shows anterior throat supple without palpable lymphadenopathy noted. Swallow reflex symmetrical. CHEST: Shows normal on inspection. Breath sounds are clear bilaterally. HEART: Shows S1, S2 clear. No murmurs auscultated. ABDOMEN: Soft, nontender, and nondistended. No palpable organomegaly is noted. No rebound or guarding demonstrated. BACK: Shows spine grossly in the midline. Normal appearing thoracic kyphosis and lumbar lordotic curvature. Lumbar paraspinous muscle shows symmetrical on inspection and on palpation shows some moderate tenderness diffusely without atrophy or hypertrophy, no asymmetry. The patient has good rotational motion of the cervical spine both laterally as well as extension and flexion. Cervical paraspinous muscle shows moderate tenderness on the left greater than the right inferior aspect of the trapezius as well as the low aspect and middle aspect of the cervical paraspinous musculature, greater on the left than right, but symmetrical as noted. The patient shows upper extremity deep tendon reflexes at 2+ in the biceps and triceps tendons. 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 Peripheral pulses are 2+ radial. No peripheral edema is noted bilaterally. Options were discussed with the patient. The patient's old chart was reviewed as her current medication regimen updated. Current review of systems updated today as well. We will proceed with third in the series of cervical epidural steroid injection today with fluoroscopic guidance. Risks were again discussed including, but not limited to bleeding, infection, possibility of epidural hematoma, subsequent neurological compromise, dural puncture, headaches, spinal cord and/or nerve damage, side effects of steroid medication and poor results regarding pain control. The patient understands and wished to proceed. The patient will return to clinic in approximately 2 weeks for followup. She was counseled as to return appointment, activity level and side effects to be aware of. DIAGNOSES: Cervical radiculopathy with cervical degenerative disk disease. PROCEDURE: Cervical epidural steroid injection, translaminar approach, C6-C7 level using C-arm fluoroscopic guidance under sterile prep and drape using local anesthetic. MEDICATION INJECTED: A total of 120 mg of Depo-Medrol plus 5 mL of preservative-free normal saline and 2 mL of contrast. CONDITION AT DISCHARGE: Stable. The patient tolerated the procedure well, had no complications. SWAPNIL CLIFFORD MD DR: RENÉ/taylor JOB#: [id number] / [id number]
== END ==
LOC: PNCL 09:29
PROVIDERS: ATTEND Anesthesiology
DX: M50.123 Cervical disc disorder at C6-C7 level with radiculopathy (principal)
CPT/HCPCS: 62321; J1030; J1040; Q9965